=== PATIENT | female | born 1990 | race Caucasian/White ===

== ENCOUNTER 2018-03-14 19:25 | Emergency (ER) | payer OTHER, MEDICAID ==
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
== END 2018-03-14 21:25 | disposition home or self-care (01) ==
LOC: MW.ED 19:25
DX: M54.2 Cervicalgia (principal); V43.52XA Car driver injured in collision with other type car in traffic accident, initial encounter; Z88.8 Allergy status to other drugs, medicaments and biological substances
CPT/HCPCS: 72125; 72125-26; 81025; 99284-25

== ENCOUNTER 2019-04-21 12:16 | Emergency (ER) | payer BC, MEDICAID ==
--- NOTE | 2019-04-21 12:37 | EDM.PDOC ---
ED HPI GENERAL MEDICAL PROBLEM - General Chief Complaint: Bite:Animal, Insect Stated Complaint: BITE ON LEG Time Seen by Provider: 04/21/19 12:27 Source of Information: Reports: Patient History Limitations: Reports: No Limitations - History of Present Illness INITIAL COMMENTS - FREE TEXT/NARRATIVE: History of present illness: []Patient was bitten by an insect on the right posterior thigh yesterday started out with a small red spot now is very large and tender. She's not had any fevers and has no difficulty walking. Review of systems: As per history of present illness and below otherwise all systems reviewed and negative. Past medical history: As per history of present illness and as reviewed below otherwise noncontributory. Surgical history: As per history of present illness and as reviewed below otherwise noncontributory. Social history: No reported history of drug or alcohol abuse. Family history: As per history of present illness and as reviewed below otherwise noncontributory. Physical exam: General: Well developed, well nourished in NAD HEENT: Atraumatic, normocephalic, pupils reactive, negative for conjunctival pallor or scleral icterus, mucous membranes moist, throat clear, neck supple, nontender, trachea midline. Lungs: Clear to auscultation, breath sounds equal bilaterally, chest nontender. Heart: S1S2, regular, negative for clicks, rubs, or JVD. Abdomen: NABS, Soft, nondistended, nontender. Negative for masses or hepatosplenomegaly. Negative for costovertebral tenderness. Pelvis: Stable nontender. Genitourinary: Deferred. Rectal: Deferred. Extremities: 10 cm x 10 cm circular raised erythematous lesion posteriorly right thigh, mildly tender to palpation, no fluctuance or lymphangitis, negative for cords or calf pain. Neurovascular unremarkable. Neuro: Awake, alert, oriented. Cranial nerves II through XII unremarkable. Cerebellum unremarkable. Motor and sensory unremarkable throughout. Exam nonfocal. Skin:warm and dry Diagnostics: None Therapeutics: None ED Course: Stable Impression: Insect bite Prescriptions: Keflex Plan: Take flax, Benadryl as directed, ice, follow up with your primary care physician , return to ER if symptoms worsen or change. Definitive disposition and diagnosis as appropriate pending reevaluation and review of above. Right Posterior Leg Pain Score (Numeric/FACES): 8 - Related Data Allergies Allergy/AdvReac Type Severity Reaction Status Date / Time adhesive tape Allergy Rash Verified 08/02/18 09:02 latex Allergy Rash Verified 08/02/18 09:02 risperidone [From Risperdal] Allergy Seizure Verified 08/02/18 09:02 Home Meds: Home Meds Albuterol Sulfate [Proair Hfa] 1 puff INH ASDIRECTED PRN 03/14/18 [History] Ascorbic Acid [Vitamin C] 1 tab PO BID 08/02/18 [History] Ferrous Sulfate [Iron] 325 mg PO BID 08/02/18 [History] Fluticasone/Salmeterol [Fluticasone-Salmeterol 55-14 MCG Powder Inh] 2 inhalation INH BID 08/02/18 [History] Montelukast Sodium 10 mg PO BEDTIME 08/02/18 [History] cephALEXin [Keflex] 500 mg PO Q8H #15 cap 04/21/19 [Rx] Past Medical History HEENT History: Reports: Other (See Below) Other HEENT History: wears glasses, top and bottom dentures Respiratory History: Reports: Asthma Gastrointestinal History: Reports: None Genitourinary History: Reports: None [employer] 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: Reports: Dysfunctional Uterine Bleeding, Fibroids Musculoskeletal History: Reports: None Neurological History: Reports: Seizure 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 Psychiatric History: Reports: Other (See Below) Other Psychiatric History: hx suicide attempt Endocrine/Metabolic History: Reports: None Hematologic History: Reports: Blood Transfusion(s), Iron Deficiency Immunologic History: Reports: None Oncologic (Cancer) History: Reports: None Dermatologic History: Reports: Other (See Below) Other Dermatologic History: neurofibromatosis - Past Surgical History Head Surgeries/Procedures: Reports: Other (See Below) HEENT Surgical History: Reports: Adenoidectomy, Tonsillectomy Other HEENT Surgeries/Procedures: hx ear surgery GI Surgical History: Reports: Appendectomy, Colonoscopy Female Surgical History: Neurological Surgical History: Reports: Other (See Below) Other Neurological Surgeries/Procedures: brain tumor removal Social & Family History - Family History Family Medical History: Noncontributory ED ROS GENERAL - Review of Systems Review Of Systems: See Below ED EXAM, ANIMAL BITE - Physical Exam Exam: See Below Course - Vital Signs Last Recorded V/S: Last Vital Signs Temp 98.2 F 04/21/19 12:29 Pulse 99 04/21/19 12:29 Resp 18 04/21/19 12:29 BP 136/90 04/21/19 12:29 Pulse Ox 99 04/21/19 12:29 Departure - Departure Time of Disposition: 12:36 Disposition: Home, Self-Care 01 Condition: Good Clinical Impression: Insect bite Qualifiers: Encounter type: initial encounter Site of insect bite: thigh Laterality: right Qualified Code(s): S70.361A - Insect bite (nonvenomous), right thigh, initial encounter; W57.XXXA - Bitten or stung by nonvenomous insect and other nonvenomous arthropods, initial encounter - Discharge Information *PRESCRIPTION DRUG MONITORING PROGRAM REVIEWED*: No *COPY OF PRESCRIPTION DRUG MONITORING REPORT IN PATIENT JUSTICE: No Prescriptions: cephALEXin [Keflex] 500 mg PO Q8H #15 cap Referrals: PCP,Unknown [Primary Care Provider] - Additional Instructions: The following information is given to patients seen in the emergency department who are being discharged to home. This information is to outline your options for follow-up care. We provide all patients seen in our emergency department with a follow-up referral. The need for follow-up, as well as the timing and circumstances, are variable depending upon the specifics of your emergency department visit. If you don't have a primary care physician on staff, we will provide you with a referral. We always advise you to contact your personal physician following an emergency department visit to inform them of the circumstance of the visit and for follow-up with them and/or the need for any referrals to a consulting specialist. The emergency department will also refer you to a specialist when appropriate. This referral assures that you have the opportunity for follow-up care with a specialist. All of these measure are taken in an effort to provide you with optimal care, which includes your follow-up. Under all circumstances we always encourage you to contact your private physician who remains a resource for coordinating your care. When calling for follow-up care, please make the office aware that this follow-up is from your recent emergency room visit. If for any reason you are refused follow-up, please contact the [facility] Emergency Department at and asked to speak to the emergency department charge nurse. Take meds as directed, follow up with your primary care physician, return to ER if symptoms worsen or change. [facility] [address] [place] [id number]
== END 2019-04-21 12:49 | disposition home or self-care (01) ==
LOC: MW.ED 12:16
DX: S70.361A Insect bite (nonvenomous), right thigh, initial encounter (principal); J45.909 Unspecified asthma, uncomplicated; Z88.8 Allergy status to other drugs, medicaments and biological substances; Z91.040 Latex allergy status; Z79.899 Other long term (current) drug therapy; Z90.49 Acquired absence of other specified parts of digestive tract; Z98.890 Other specified postprocedural states; Z91.09 Other allergy status, other than to drugs and biological substances; W57.XXXA Bitten or stung by nonvenomous insect and other nonvenomous arthropods, initial encounter
CPT/HCPCS: 99282

== ENCOUNTER 2019-05-02 08:51 | Emergency (ER) | payer BC ==
--- NOTE | 2019-05-02 09:10 | EDM.PDOC ---
ED HPI GENERAL MEDICAL PROBLEM - General Chief Complaint: ENT Problem Stated Complaint: BILATERAL EAR PAIN Time Seen by Provider: 05/02/19 09:02 - History of Present Illness INITIAL COMMENTS - FREE TEXT/NARRATIVE: HISTORY AND PHYSICAL: History of present illness: Patient's 29-year-old white female history of bilateral ear pain patient states it began this a.m. when she awoke she denies trauma fever chills denies history of otitis media denies sore throat or other concern. Review of systems: As per history of present illness and below otherwise all systems reviewed and negative. Past medical history: As per history of present illness and as reviewed below otherwise noncontributory. Surgical history: As per history of present illness and as reviewed below otherwise noncontributory. Social history: No reported history of drug or alcohol abuse. Family history: As per history of present illness and as reviewed below otherwise noncontributory. Physical exam: HEENT: Atraumatic, normocephalic, pupils reactive, negative for conjunctival pallor or scleral icterus, mucous membranes moist, throat clear, neck supple, nontender, trachea midline. TM normal bilaterally external auditory canal without acute findings mastoid bilateral nontender Lungs: Clear to auscultation, breath sounds equal bilaterally, chest nontender. Heart: S1S2, regular, negative for clicks, rubs, or JVD. Abdomen: Soft, nondistended, nontender. Negative for masses or hepatosplenomegaly. Negative for costovertebral tenderness. Pelvis: Stable nontender. Genitourinary: Deferred. Rectal: Deferred. Extremities: Atraumatic, negative for cords or calf pain. Neurovascular unremarkable. Neuro: Awake, alert, oriented. Cranial nerves II through XII unremarkable. Cerebellum unremarkable. Motor and sensory unremarkable throughout. Exam nonfocal. Diagnostics: None Therapeutics: None Impression: #1 bilateral otalgia etiology to be determined Definitive disposition and diagnosis as appropriate pending reevaluation and review of above. Bilateral Ear Pain Score (Numeric/FACES): 8 - Related Data Allergies Allergy/AdvReac Type Severity Reaction Status Date / Time adhesive tape Allergy Rash Verified 05/02/19 08:58 latex Allergy Rash Verified 05/02/19 08:58 risperidone [From Risperdal] Allergy Seizure Verified 05/02/19 08:58 Home Meds: Home Meds Albuterol Sulfate [Proair Hfa] 1 puff INH ASDIRECTED PRN 03/14/18 [History] Ascorbic Acid [Vitamin C] 1 tab PO BID 08/02/18 [History] Ferrous Sulfate [Iron] 325 mg PO BID 08/02/18 [History] Fluticasone/Salmeterol [Fluticasone-Salmeterol 55-14 MCG Powder Inh] 2 inhalation INH BID 08/02/18 [History] Montelukast Sodium 10 mg PO BEDTIME 08/02/18 [History] Past Medical History HEENT History: Reports: Other (See Below) Other HEENT History: wears glasses, top and bottom dentures Respiratory History: Reports: Asthma Gastrointestinal History: Reports: None Genitourinary History: Reports: None 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: Reports: Dysfunctional Uterine Bleeding, Fibroids Musculoskeletal History: Reports: None Neurological History: Reports: Seizure 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 Psychiatric History: Reports: Other (See Below) Other Psychiatric History: hx suicide attempt Endocrine/Metabolic History: Reports: None Hematologic History: Reports: Blood Transfusion(s), Iron Deficiency Immunologic History: Reports: None Oncologic (Cancer) History: Reports: None Dermatologic History: Reports: Other (See Below) Other Dermatologic History: neurofibromatosis - Infectious Disease History Infectious Disease History: Reports: Chicken Pox - Past Surgical History Head Surgeries/Procedures: Reports: Other (See Below) HEENT Surgical History: Reports: Adenoidectomy, Tonsillectomy Other HEENT Surgeries/Procedures: hx ear surgery GI Surgical History: Reports: Appendectomy, Colonoscopy Neurological Surgical History: Reports: Other (See Below) Other Neurological Surgeries/Procedures: brain tumor removal Social & Family History - Family History Family Medical History: Noncontributory - Tobacco Use Smoking Status *Q: Never Smoker - Caffeine Use Caffeine Use: Reports: Coffee, Soda - Recreational Drug Use Recreational Drug Use: No ED ROS GENERAL - Review of Systems Review Of Systems: ROS reveals no pertinent complaints other than HPI. ED EXAM, GENERAL - Physical Exam Exam: See Below (See dictation) Course - Vital Signs Last Recorded V/S: Last Vital Signs Temp 36.6 C 05/02/19 08:59 Pulse 93 05/02/19 08:59 Resp 17 05/02/19 08:59 BP 134/88 05/02/19 08:59 Pulse Ox 97 05/02/19 08:59 Departure - Departure Time of Disposition: 09:09 Disposition: Home, Self-Care 01 Condition: Good Clinical Impression: Otalgia of both ears - Discharge Information Referrals: PCP,None [Primary Care Provider] - Additional Instructions: The following information is given to patients seen in the emergency department who are being discharged to home. This information is to outline your options for follow-up care. We provide all patients seen in our emergency department with a follow-up referral. The need for follow-up, as well as the timing and circumstances, are variable depending upon the specifics of your emergency department visit. If you don't have a primary care physician on staff, we will provide you with a referral. We always advise you to contact your personal physician following an emergency department visit to inform them of the circumstance of the visit and for follow-up with them and/or the need for any referrals to a consulting specialist. The emergency department will also refer you to a specialist when appropriate. This referral assures that you have the opportunity for followup care with a specialist. All of these measure are taken in an effort to provide you with optimal care, which includes your followup. Under all circumstances we always encourage you to contact your private physician who remains a resource for coordinating your care. When calling for followup care, please make the office aware that this follow-up is from your recent emergency room visit. If for any reason you are refused follow-up, please contact the [facility] emergency department at and asked to speak to the emergency department charge nurse. Motrin/Tylenol as directed decongestants as directed follow-up private medical doctor for reevaluation as discussed return as needed as discussed
== END 2019-05-02 09:15 | disposition home or self-care (01) ==
LOC: MW.ED 08:51
DX: H92.03 Otalgia, bilateral (principal); J45.909 Unspecified asthma, uncomplicated; Z91.040 Latex allergy status; Z91.018 Allergy to other foods; Z88.8 Allergy status to other drugs, medicaments and biological substances; Z79.899 Other long term (current) drug therapy
CPT/HCPCS: 99282

== ENCOUNTER 2019-06-09 19:34 | Emergency (ER) | payer BC ==
--- NOTE | 2019-06-09 20:23 | EDM.PDOC ---
ED HPI GENERAL MEDICAL PROBLEM - General Chief Complaint: Respiratory Problem Stated Complaint: ASTHMA Time Seen by Provider: 06/09/19 20:22 Source of Information: Reports: Patient History Limitations: Reports: No Limitations - History of Present Illness INITIAL COMMENTS - FREE TEXT/NARRATIVE: HISTORY AND PHYSICAL: History of present illness: Patient is a 29-year-old female presents to the ED with complaint of asthma exacerbation. She states that the past couple of days she has been coughing and wheezing. Flovent daily but has been out of her rescue inhaler. She denies fevers, chills, nausea, vomiting. Review of systems: As per history of present illness and below otherwise all systems reviewed and negative. Past medical history: As per history of present illness and as reviewed below otherwise noncontributory. Surgical history: As per history of present illness and as reviewed below otherwise noncontributory. Social history: No reported history of drug or alcohol abuse. Family history: As per history of present illness and as reviewed below otherwise noncontributory. Physical exam: General: Patient sitting comfortably in no acute distress and nontoxic appearing HEENT: Atraumatic, normocephalic, pupils reactive, negative for conjunctival pallor or scleral icterus, mucous membranes moist, throat clear, neck supple, nontender, trachea midline. No meningeal signs. Lungs: Breath sounds are diminished throughout with end expiratory wheezing noted., chest nontender. Heart: S1S2, regular, negative for clicks, rubs, or overt murmur. Abdomen: Soft, nondistended, nontender. Negative for masses or hepatosplenomegaly. Negative for costovertebral tenderness. No rigidity, rebound , guarding. Pelvis: Stable nontender. Genitourinary: Deferred. Rectal: Deferred. Extremities: Atraumatic, negative for cords or calf pain. Neurovascular unremarkable. Neuro: Awake, alert, oriented. Cranial nerves II through XII unremarkable. Cerebellum unremarkable. Motor and sensory unremarkable throughout. Exam nonfocal. Notes: Diagnostics: None Therapeutics: DuoNeb Solu-Medrol 125 mg IM Prescriptions: Ventolin Medrol dosepak Impression: Acute asthma exacerbation Plan: Take medications as instructed Follow up with primary care provider Return to ED as needed as discussed Definitive disposition and diagnosis as appropriate pending reevaluation and review of above. - Related Data Allergies Allergy/AdvReac Type Severity Reaction Status Date / Time adhesive tape Allergy Rash Verified 06/09/19 20:13 latex Allergy Rash Verified 06/09/19 20:13 risperidone [From Risperdal] Allergy Seizure Verified 06/09/19 20:13 Home Meds: Home Meds Albuterol Sulfate [Proair Hfa] 1 puff INH ASDIRECTED PRN 03/14/18 [History] Ascorbic Acid [Vitamin C] 1 tab PO BID 08/02/18 [History] Ferrous Sulfate [Iron] 325 mg PO BID 08/02/18 [History] Fluticasone/Salmeterol [Fluticasone-Salmeterol 55-14 MCG Powder Inh] 2 inhalation INH BID 08/02/18 [History] Montelukast Sodium 10 mg PO BEDTIME 08/02/18 [History] Past Medical History HEENT History: Reports: Other (See Below) Other HEENT History: wears glasses, top and bottom dentures Respiratory History: Reports: Asthma Gastrointestinal History: Reports: None Genitourinary History: Reports: None 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: Dysfunctional Uterine Bleeding, Fibroids Musculoskeletal History: Reports: None Neurological History: Reports: Seizure 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 Psychiatric History: Reports: Other (See Below) Other Psychiatric History: hx suicide attempt Endocrine/Metabolic History: Reports: None Hematologic History: Reports: Blood Transfusion(s), Iron Deficiency Immunologic History: Reports: None Oncologic (Cancer) History: Reports: None Dermatologic History: Reports: Other (See Below) Other Dermatologic History: neurofibromatosis - Infectious Disease History Infectious Disease History: Reports: Chicken Pox - Past Surgical History Head Surgeries/Procedures: Reports: Other (See Below) HEENT Surgical History: Reports: Adenoidectomy, Tonsillectomy Other HEENT Surgeries/Procedures: hx ear surgery GI Surgical History: Reports: Appendectomy, Colonoscopy Neurological Surgical History: Reports: Other (See Below) Other Neurological Surgeries/Procedures: brain tumor removal Social & Family History - Family History Family Medical History: Noncontributory - Tobacco Use Smoking Status *Q: Never Smoker Second Hand Smoke Exposure: No - Caffeine Use Caffeine Use: Reports: Coffee - Recreational Drug Use Recreational Drug Use: No ED ROS GENERAL - Review of Systems Review Of Systems: ROS reveals no pertinent complaints other than HPI. ED EXAM, GENERAL - Physical Exam Exam: See Below (see Dictation) Course - Vital Signs Last Recorded V/S: Last Vital Signs Temp 97.4 F 06/09/19 20:03 Pulse 82 06/09/19 20:03 Resp 14 06/09/19 20:03 BP 132/85 06/09/19 20:03 Pulse Ox 97 06/09/19 20:03 - Orders/Labs/Meds Orders: Active Orders 24 hr Category Date Time Status RT Aerosol Therapy [RC] ASDIRECTED Care 06/09/19 20:25 Ordered Meds: Medications Discontinued Medications Generic Name Dose Route Start Last Admin Trade Name Nigel PRN Reason Stop Dose Admin Albuterol/Ipratropium 3 ml 06/09/19 20:25 06/09/19 20:28 Duoneb 3.0-0.5 Mg/3 Ml NEB 06/09/19 20:26 3 ml ONETIME ONE Administration Albuterol/Ipratropium Confirm 06/09/19 20:26 Duoneb 3.0-0.5 Mg/3 Ml Administered 06/09/19 20:27 Dose 3 ml .ROUTE .STK-MED ONE Methylprednisolone Sodium Succinate 125 mg 06/09/19 20:25 Solu-Medrol IM 06/09/19 20:26 ONETIME ONE Departure - Departure Time of Disposition: 20:54 Disposition: Home, Self-Care 01 Condition: Good Clinical Impression: Acute asthma exacerbation - Discharge Information Instructions: Asthma, Adult Referrals: PCP,None [Primary Care Provider] - Forms: ED Department Discharge Additional Instructions: The following information is given to patients seen in the emergency department who are being discharged to home. This information is to outline your options for follow-up care. We provide all patients seen in our emergency department with a follow-up referral. The need for follow-up, as well as the timing and circumstances, are variable depending upon the specifics of your emergency department visit. If you don't have a primary care physician on staff, we will provide you with a referral. We always advise you to contact your personal physician following an emergency department visit to inform them of the circumstance of the visit and for follow-up with them and/or the need for any referrals to a consulting specialist. The emergency department will also refer you to a specialist when appropriate. This referral assures that you have the opportunity for follow-up care with a specialist. All of these measure are taken in an effort to provide you with optimal care, which includes your follow-up. Under all circumstances we always encourage you to contact your private physician who remains a resource for coordinating your care. When calling for follow-up care, please make the office aware that this follow-up is from your recent emergency room visit. If for any reason you are refused follow-up, please contact the [facility] Emergency Department at and asked to speak to the emergency department charge nurse. [facility] [address] [place] [id number] [address] Take medications as instructed Follow up with primary care provider Return to ED as needed as discussed - My Orders Last 24 Hours: My Active Orders 06/09/19 20:25 RT Aerosol Therapy [RC] ASDIRECTED - Assessment/Plan Last 24 Hours: My Active Orders 06/09/19 20:25 RT Aerosol Therapy [RC] ASDIRECTED
[2019-06-09] MEDS ORDERED: Albuterol/Ipratropium 3.0-0.5 MG/3 ML Neb Soln NEB ONE (20:25)
[2019-06-09] MEDS ORDERED: methylPREDNISolone Sodium Succinate 125 MG/2 ML SDV IM ONE (20:25)
[2019-06-09] MEDS ORDERED: Albuterol/Ipratropium 3.0-0.5 MG/3 ML Neb Soln ONE (20:26)
== END 2019-06-09 21:37 | disposition home or self-care (01) ==
LOC: MW.ED 19:34
DX: J45.901 Unspecified asthma with (acute) exacerbation (principal); Z98.890 Other specified postprocedural states; Z90.49 Acquired absence of other specified parts of digestive tract; Z91.09 Other allergy status, other than to drugs and biological substances; Z91.040 Latex allergy status; Z88.8 Allergy status to other drugs, medicaments and biological substances
CPT/HCPCS: 94640; 99283-25; J7620-GY

== ENCOUNTER 2019-09-23 13:47 | Emergency (ER) | payer BC ==
--- NOTE | 2019-09-23 14:32 | EDM.PDOC ---
ED HPI GENERAL MEDICAL PROBLEM - General Chief Complaint: Skin Complaint Stated Complaint: SORE ON MOUTH Time Seen by Provider: 09/23/19 13:55 Source of Information: Reports: Patient History Limitations: Reports: No Limitations - History of Present Illness INITIAL COMMENTS - FREE TEXT/NARRATIVE: HISTORY AND PHYSICAL: History of present illness: She is a 29-year-old female who presents to the ED today with concern of infection on the right side of her lower lip. Patient states she had a zit on her lip yesterday and tried to pop it and today had more swelling of the lip this morning. Patient states she has been able to eat and drink without difficulty. Denies any other symptoms or concerns. Patient denies fever, chills, chest pain, shortness of breath, or cough. Denies headache, neck stiff ness, change in vision, syncope, or near syncope. Denies nausea, vomiting, abdominal pain, diarrhea, constipation, or dysuria. Has not noted any blood in urine or stool. Patient has been eating and drinking appropriately. Review of systems: As per history of present illness and below otherwise all systems reviewed and negative. Past medical history: As per history of present illness and as reviewed below otherwise noncontributory. Surgical history: As per history of present illness and as reviewed below otherwise noncontributory. Social history: See social history for further information Family history: As per history of present illness and as reviewed below otherwise noncontributory. Physical exam: General: Patient is alert, oriented, and in no acute distress. Patient sitting comfortably on exam table. HEENT: Atraumatic, normocephalic, pupils equal and reactive bilaterally, negative for conjunctival pallor or scleral icterus, mucous membranes moist, TMs normal bilaterally, throat clear, neck supple, nontender, trachea midline. No drooling or trismus noted. No meningeal signs. No hot potato voice noted. There is a small lesion on the right side of the lower lip with localized mild edema of the lip. This area is does not extend beyond the lip. Dentition intact without sign of abscess. Lungs: Clear to auscultation, breath sounds equal bilaterally, chest nontender. Heart: S1S2, regular rate and rhythm without overt murmur Abdomen: Soft, nondistended, nontender. Negative for masses or hepatosplenomegaly. Negative for costovertebral tenderness. Pelvis: Stable nontender. Genitourinary: Deferred. Rectal: Deferred. Skin: Intact, warm, dry. No lesions or rashes noted. Extremities: Atraumatic, negative for cords or calf pain. Neurovascular unremarkable. Neuro: Awake, alert, oriented. Cranial nerves II through XII unremarkable. Cerebellum unremarkable. Motor and sensory unremarkable throughout. Exam nonfocal. Notes: Discussed importance for follow-up with a primary care provider. Voices understanding and is agreeable to plan of care. Denies any further questions or concerns at this time. Diagnostics: None Therapeutics: None Prescription: Bactrim DS Impression: Localized cellulitis Plan: 1. Take medication as prescribed. You can alternate ibuprofen and Tylenol as directed for pain and discomfort. 2. Follow-up with your primary care provider as discussed. Return to the ED as needed and as discussed. Definitive disposition and diagnosis as appropriate pending reevaluation and review of above. Right Face/Facial Pain Score (Numeric/FACES): 8 - Related Data Allergies Allergy/AdvReac Type Severity Reaction Status Date / Time adhesive tape Allergy Rash Verified 09/23/19 13:56 latex Allergy Rash Verified 09/23/19 13:56 risperidone [From Risperdal] Allergy Seizure Verified 09/23/19 13:56 Home Meds: Home Meds Albuterol Sulfate [Proair Hfa] 1 puff INH ASDIRECTED PRN 03/14/18 [History] Ascorbic Acid [Vitamin C] 1 tab PO BID 08/02/18 [History] Ferrous Sulfate [Iron] 325 mg PO BID 08/02/18 [History] Fluticasone/Salmeterol [Fluticasone-Salmeterol 55-14 MCG Powder Inh] 2 inhalation INH BID 08/02/18 [History] Montelukast Sodium 10 mg PO BEDTIME 08/02/18 [History] Sulfamethoxazole/Trimethoprim [Bactrim Ds Tablet] 1 each PO BID #20 tablet 09/23 [Rx] Past Medical History HEENT History: Reports: Other (See Below) Other HEENT History: wears glasses, top and bottom dentures Respiratory History: Reports: Asthma Gastrointestinal History: Reports: None Genitourinary History: Reports: None 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: Dysfunctional Uterine Bleeding, Fibroids Musculoskeletal History: Reports: None Neurological History: Reports: Seizure 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 Psychiatric History: Reports: Other (See Below) Other Psychiatric History: hx suicide attempt Endocrine/Metabolic History: Reports: None Hematologic History: Reports: Blood Transfusion(s), Iron Deficiency Immunologic History: Reports: None Oncologic (Cancer) History: Reports: None Dermatologic History: Reports: Other (See Below) Other Dermatologic History: neurofibromatosis - Infectious Disease History Infectious Disease History: Reports: Chicken Pox - Past Surgical History Head Surgeries/Procedures: Reports: Other (See Below) HEENT Surgical History: Reports: Adenoidectomy, Tonsillectomy Other HEENT Surgeries/Procedures: hx ear surgery GI Surgical History: Reports: Appendectomy, Colonoscopy Neurological Surgical History: Reports: Other (See Below) Other Neurological Surgeries/Procedures: brain tumor removal Social & Family History - Family History Family Medical History: Noncontributory - Tobacco Use Smoking Status *Q: Never Smoker - Caffeine Use Caffeine Use: Reports: Coffee, Energy Drinks, Soda, Tea - Recreational Drug Use Recreational Drug Use: No ED ROS GENERAL - Review of Systems Review Of Systems: Comprehensive ROS is negative, except as noted in HPI. ED EXAM, SKIN/RASH Exam: See Below (see dictation) Course - Vital Signs Last Recorded V/S: Last Vital Signs Temp 97.4 F 09/23/19 13:57 Pulse 105 H 09/23/19 13:57 Resp 19 09/23/19 13:57 BP 123/78 09/23/19 13:57 Pulse Ox 97 09/23/19 13:57 Departure - Departure Time of Disposition: 14:31 Disposition: Home, Self-Care 01 Clinical Impression: Cellulitis Qualifiers: Site of cellulitis: mouth Qualified Code(s): K12.2 - Cellulitis and abscess of mouth - Discharge Information Prescriptions: Sulfamethoxazole/Trimethoprim [Bactrim Ds Tablet] 1 each PO BID #20 tablet Instructions: Cellulitis, Adult, [id number] Referrals: PCP,None [Primary Care Provider] - Forms: ED Department Discharge Additional Instructions: The following information is given to patients seen in the emergency department who are being discharged to home. This information is to outline your options for follow-up care. We provide all patients seen in our emergency department with a follow-up referral. The need for follow-up, as well as the timing and circumstances, are variable depending upon the specifics of your emergency department visit. If you don't have a primary care physician on staff, we will provide you with a referral. We always advise you to contact your personal physician following an emergency department visit to inform them of the circumstance of the visit and for follow-up with them and/or the need for any referrals to a consulting specialist. The emergency department will also refer you to a specialist when appropriate. This referral assures that you have the opportunity for follow-up care with a specialist. All of these measure are taken in an effort to provide you with optimal care, which includes your follow-up. Under all circumstances we always encourage you to contact your private physician who remains a resource for coordinating your care. When calling for follow-up care, please make the office aware that this follow-up is from your recent emergency room visit. If for any reason you are refused follow-up, please contact the [facility] Emergency Department at and asked to speak to the emergency department charge nurse. [facility] [address] [place] [phone] [id number] 1. Take medication as prescribed. You can alternate ibuprofen and Tylenol as directed for pain and discomfort. 2. Follow-up with your primary care provider as discussed. Return to the ED as needed and as discussed. Sepsis Event Note - Evaluation Sepsis Screening Result: No Definite Risk - Focused Exam Vital Signs: Vital Signs Temp Pulse Resp BP Pulse Ox 09/23/19 13:57 97.4 F 105 H 19 123/78 97 Date Exam was Performed: 09/23/19 Time Exam was Performed: 14:36
== END 2019-09-23 14:44 | disposition home or self-care (01) ==
LOC: MW.ED 13:47
DX: K12.2 Cellulitis and abscess of mouth (principal); J45.909 Unspecified asthma, uncomplicated; Z91.040 Latex allergy status; Z88.8 Allergy status to other drugs, medicaments and biological substances; Z91.048 Other nonmedicinal substance allergy status; Z79.51 Long term (current) use of inhaled steroids; Z79.899 Other long term (current) drug therapy
CPT/HCPCS: 99282

== ENCOUNTER 2021-02-23 22:08 | Emergency (ER) | payer MEDICAID ==
[2021-02-23] MEDS ORDERED: predniSONE 10 MG Tab PO ONE (22:44)
--- NOTE | 2021-02-23 23:25 | EDM.PDOC ---
ED HPI GENERAL MEDICAL PROBLEM - General Chief Complaint: Respiratory Problem Stated Complaint: CHEST PAIN/ BREATHING PROBLEMS Time Seen by Provider: 02/23/21 22:44 - History of Present Illness INITIAL COMMENTS - FREE TEXT/NARRATIVE: HISTORY AND PHYSICAL: History of present illness: This is a 31-year-old female with history significant for asthma in the past who presents ER today secondary to shortness of breath and wheezing with congestion x1 day. Patient reports that she used 2 albuterol treatments prior to arrival in the ED and feels much better. Patient reports she still feels congested and has been coughing a significant amount of clear sputum. Patient reports that she gets tested for Covid twice a week and has no concerns and does not wish to be tested here in the ED for coronavirus. Patient denies any recent fevers, shakes, chills. Patient has any nausea, vomiting, diarrhea. Patient is complaining of a sore throat. Patient denies any abdominal pain. Review of systems: As per history of present illness and below otherwise all systems reviewed and negative. Past medical history: As per history of present illness and as reviewed below otherwise noncontributory. Surgical history: As per history of present illness and as reviewed below otherwise noncontributory. Social history: No reported history of drug abuse. Family history: As per history of present illness and as reviewed below otherwise noncontributory. Physical exam: This patient was seen and evaluated during the 2019 SARS-CoV-2 novel coronavirus pandemic period. Community viral transmission is ongoing at time of this enco unter and the emergency department is operating under pandemic response procedures. Constitutional: Patient is oriented to person, place, and time. Appears well- developed and well-nourished. No distress. HEENT: Moist mucous membranes Head: Normocephalic and atraumatic Eyes: Right eye exhibits no discharge. Left eye exhibits no discharge. No scleral icterus Neck: Normal range of motion. No tracheal deviation present. Cardiovascular: Normal rate and regular rhythm. Pulmonary: Effort normal, no respiratory distress. Abdominal: No distention Musculoskeletal: Normal range of motion Neurologic: Alert and oriented to person, place and time. Skin: [place], warm and dry. Psychiatric: Normal mood and affect. Behavior is normal. Judgment and thought content normal. Nursing note and vital signs have been reviewed Patient's lungs are clear without any wheezing rales or rhonchi. Patient's oropharynx is clear without any exudates. Patient has no tender lymphadenopathy. Patient has no trismus or evidence of airway abscess. Diagnostics: Chest Xray: Normal cardiac silhouette No infiltrates or effusions identified. No PTX No evidence of acute bony fracture. As interpreted by ER MD: Mook Guidry: Patient will get started on prednisone in the ED. Patient be given 40 mg p.o. Assessment and plan: 31-year-old female with a history significant for asthma who presents ER today with increasing asthma exacerbation. Patient's lungs are clear currently after treatment at home. Patient's chest x-ray is unremarkable without any evidence of pneumonia. Patient will get started on prednisone for 5 days. Patient likely has exacerbation from environmental allergens causing flareup of her asthma. At this time, the patient's pulse ox is 99% on room air and does not appear to be in any respiratory distress. Patient reports that she feels much better from a respiratory standpoint and currently does not feel like she is wheezing. Patient agrees with not requiring any albuterol treatments here in the ED as she is ready given herself to prior to coming. Reassessment at the time of disposition demonstrates that the patient is in no acute distress. The patient has remained stable throughout the entire ED visit and is without objective evidence for acute process requiring urgent intervention or hospitalization. The patient is stable for discharge, counseling is provided as documented above, discussed symptomatic treatment and specific conditions for return. I have spoken with the patient/caregiver and discussed todays findings, in addition to providing specific details for the plan of care. Questions are answered and there is agreement with the plan. Definitive disposition and diagnosis as appropriate pending reevaluation and review of above. Throat Pain Score (Numeric/FACES): 8 - Related Data Allergies Allergy/AdvReac Type Severity Reaction Status Date / Time adhesive tape Allergy Rash Verified 02/23/21 22:36 latex Allergy Rash Verified 02/23/21 22:36 risperidone [From Risperdal] Allergy Seizure Verified 02/23/21 22:36 Home Meds: Home Meds Albuterol Sulfate [Proair Hfa] 1 puff INH ASDIRECTED PRN 03/14/18 [History] Ascorbic Acid [Vitamin C] 1 tab PO BID 08/02/18 [History] Ferrous Sulfate [Iron] 325 mg PO BID 08/02/18 [History] Fluticasone/Salmeterol [Fluticasone-Salmeterol 55-14 MCG Powder Inh] 2 inhalation INH BID 08/02/18 [History] Montelukast Sodium 10 mg PO BEDTIME 08/02/18 [History] predniSONE [Prednisone] 50 mg PO DAILY #5 tablet 02/23/21 [Rx] Past Medical History HEENT History: Reports: Other (See Below) Other HEENT History: wears glasses, has upper and lower dentures, hx of fx nose Respiratory History: Reports: Asthma Gastrointestinal History: Reports: Other (See Below) Other Gastrointestinal History: occasional heartburn- takes Tums Genitourinary History: Reports: None [employer] History: Reports: Dysfunctional Uterine Bleeding, Fibroids Musculoskeletal History: Reports: Other (See Below) Other Musculoskeletal History: hx of Neurofibromatosis Type 1 Neurological History: Reports: Headaches, Chronic, Migraines, Seizure Other Neuro History: had a seizure while taking Risperdal Psychiatric History: Reports: Other (See Below) Other Psychiatric History: hx of Claustrophobia Endocrine/Metabolic History: Reports: None Hematologic History: Reports: Anemia, Blood Transfusion(s) Other Hematologic History: amenic- unknown cause Immunologic History: Reports: None Oncologic (Cancer) History: Reports: None Dermatologic History: Reports: Other (See Below) Other Dermatologic History: neurofibromatosis - Infectious Disease History Infectious Disease History: Reports: Chicken Pox - Past Surgical History Head Surgeries/Procedures: Reports: None HEENT Surgical History: Reports: Adenoidectomy, Myringotomy w Tube(s), Tonsillectomy Other HEENT Surgeries/Procedures: hx ear surgery GI Surgical History: Reports: Appendectomy, Colonoscopy Female Surgical History: Reports: Other (See Below) Other Female Surgeries/Procedures: Excision of Uterine tumor Neurological Surgical History: Reports: Other (See Below) Other Neurological Surgeries/Procedures: Crainiotomy for resection of brain tumor (neurofibromatosis)- thinks she may have screws in her skull Social & Family History - Family History Family Medical History: No Pertinent Family History - Tobacco Use Tobacco Use Status *Q: Never Tobacco User Second Hand Smoke Exposure: No - Caffeine Use Caffeine Use: Reports: None - Recreational Drug Use Recreational Drug Use: No ED ROS GENERAL - Review of Systems Review Of Systems: See Below ED EXAM, GENERAL - Physical Exam Exam: See Below Course - Vital Signs Last Recorded V/S: Last Vital Signs Temp 98.8 F 02/23/21 22:33 Pulse 110 H 02/23/21 22:33 Resp 14 02/23/21 22:33 BP 133/65 02/23/21 22:33 Pulse Ox 96 02/23/21 22:33 - Orders/Labs/Meds Orders: Active Orders 24 hr Category Date Time Status Chest 2V [CR] Stat Exams 02/23/21 22:44 Ordered Meds: Medications Discontinued Medications Generic Name Dose Route Start Last Admin Trade Name Nigel PRN Reason Stop Dose Admin Prednisone 40 mg 02/23/21 22:44 02/23/21 22:53 Prednisone 10 Mg Tab PO 02/23/21 22:45 40 mg ONETIME ONE Administration Departure - Departure Time of Disposition: 23:24 Disposition: Home, Self-Care 01 Condition: Good Clinical Impression: Exacerbation of asthma - Discharge Information Instructions: Asthma, Adult Referrals: PCP,None [Primary Care Provider] - Additional Instructions: You were seen and evaluated in the ER today secondary to an exacerbation of your asthma prior to coming into the ED. After your treatments at home, it appears that your lungs are currently clear without any further wheezing. In the ED you were given a dose of prednisone 40 mg and will be discharged home with 40 mg daily for 5 days help alleviate the exacerbation of your asthma. Please make an appointment to follow-up with your family doctor within the next 2 to 3 days for reevaluation. Please return to the ER if you start experiencing any worsening shortness of breath or any other concerns. The following information is given to patients seen in the emergency department who are being discharged to home. This information is to outline your options for follow-up care. We provide all patients seen in our emergency department with a follow-up referral. The need for follow-up, as well as the timing and circumstances, are variable depending upon the specifics of your emergency department visit. If you don't have a primary care physician on staff, we will provide you with a referral. We always advise you to contact your personal physician following an emergency department visit to inform them of the circumstance of the visit and for follow-up with them and/or the need for any referrals to a consulting specialist. The emergency department will also refer you to a specialist when appropriate. This referral assures that you have the opportunity for follow-up care with a specialist. All of these measure are taken in an effort to provide you with optimal care, which includes your follow-up. Under all circumstances we always encourage you to contact your private physician who remains a resource for coordinating your care. When calling for follow-up care, please make the office aware that this follow-up is from your recent emergency room visit. If for any reason you are refused follow-up, please contact the [facility] Emergency Department at and asked to speak to the emergency department charge nurse. [facility] [address] [place] [id number] [address] Sepsis Event Note (ED) - Evaluation Sepsis Screening Result: No Definite Risk - Focused Exam Vital Signs: Vital Signs Temp Pulse Resp BP Pulse Ox 02/23/21 22:33 98.8 F 110 H 14 133/65 96 - My Orders Last 24 Hours: My Active Orders 02/23/21 22:44 Chest 2V [CR] Stat - Assessment/Plan Last 24 Hours: My Active Orders 02/23/21 22:44 Chest 2V [CR] Stat
--- NOTE | 2021-02-23 23:40 | CR ---
INDICATION: Shortness of breath. COMPARISON: 01/14/2020 FINDINGS: PA and lateral views of the chest were obtained. The lungs remain clear. No focal or diffuse infiltrates are present. The heart remains normal in size. The mediastinum is normal in appearance. The osseous structures are normal in appearance for the patient`s age. IMPRESSION: Normal chest two views. Dictated by Basil Ty MD @ 02/23/2021 11:38:[address] Basil Ty @ Feb 23 2021 11:38PM
== END 2021-02-23 23:35 | disposition home or self-care (01) ==
LOC: MW.ED 22:08
DX: J45.901 Unspecified asthma with (acute) exacerbation (principal); Z91.048 Other nonmedicinal substance allergy status; Z91.040 Latex allergy status; Z88.8 Allergy status to other drugs, medicaments and biological substances; Z79.899 Other long term (current) drug therapy
CPT/HCPCS: 71046; 99284; A9270; 99283

== ENCOUNTER 2022-04-06 08:59 | Observation (INO) | payer MEDICAID ==
[2022-04-06] MEDS ORDERED: Lactated Ringers 1,000 ML IV SCH (09:45)
[2022-04-06] MEDS: Ondansetron 4 MG/2 ML SDV IVPUSH PRN ×2 (10:42→17:31)
[2022-04-06 11:44] LABS: CARBON DIOXIDE,CO2 18.6 mmol/L (21.0-32.0); POTASSIUM,K 3.8 mmol/L (3.5-5.1)
[2022-04-06] MEDS: Lactated Ringers 1,000 ML IV SCH ×2 (13:30→20:47)
[2022-04-06] MEDS ORDERED: Albuterol/Ipratropium 3.0-0.5 MG/3 ML Neb Soln NEB SCH (15:30)
[2022-04-06] MEDS: NIRMATRELVIR PO SCH (17:45)
[2022-04-06] MEDS: RITONAVIR PO SCH (17:45)
[2022-04-06] MEDS ORDERED: Albuterol/Ipratropium 3.0-0.5 MG/3 ML Neb Soln NEB PRN (18:00)
[2022-04-06] MEDS ORDERED: RITONAVIR PO SCH (18:00)
[2022-04-06] MEDS ORDERED: NIRMATRELVIR PO SCH (18:00)
[2022-04-06] MEDS ORDERED: Acetaminophen 650 MG in Premix Bag 1 BAG IV SCH (19:45)
[2022-04-06] MEDS: Metoclopramide 10 MG/2 ML SDV IVPUSH PRN (20:00)
[2022-04-06] MEDS: Albuterol/Ipratropium 3.0-0.5 MG/3 ML Neb Soln NEB PRN (23:10)
[2022-04-07] MEDS: Ondansetron 4 MG/2 ML SDV IVPUSH PRN (04:07)
[2022-04-07] MEDS: Lactated Ringers 1,000 ML IV SCH (04:08)
[2022-04-07] MEDS: Albuterol/Ipratropium 3.0-0.5 MG/3 ML Neb Soln NEB PRN (04:41)
[2022-04-07 07:12] LABS: CARBON DIOXIDE,CO2 19.6 mmol/L (21.0-32.0)
[2022-04-07] MEDS: Metoclopramide 10 MG/2 ML SDV IVPUSH PRN (07:34)
[2022-04-07] MEDS: NIRMATRELVIR PO SCH (09:09)
[2022-04-07] MEDS: RITONAVIR PO SCH (09:09)
[2022-04-07] MEDS ORDERED: Iron Sucrose Complex 200 MG in Sodium Chloride 0.9% 100 ML IV ONE (09:15)
== END 2022-04-07 12:25 | disposition home or self-care (01) ==
LOC: MW.OB 08:59 → MW.OBCHECK 08:59 → MW.OB 13:00 → MW.OBCHECK 15:43
PROVIDERS: ADMIT Obstetrics & Gynecology; ATTEND Obstetrics & Gynecology
DX: O98.513 Other viral diseases complicating pregnancy, third trimester (principal); U07.1 COVID-19; O99.513 Diseases of the respiratory system complicating pregnancy, third trimester; J45.909 Unspecified asthma, uncomplicated; Z91.040 Latex allergy status; Z88.8 Allergy status to other drugs, medicaments and biological substances; Z79.51 Long term (current) use of inhaled steroids; Z79.52 Long term (current) use of systemic steroids; Z3A.29 29 weeks gestation of pregnancy
CPT/HCPCS: 36415; 59025; 76819; 80053; 81003; 83735; 84100; 85027; 87635; 94640; 96361; 96365; 96375; 96376; G0378; J0131; J1756; J2405; J2765; J3490; J7120; J7620-GY; U0002

== ENCOUNTER 2022-05-12 17:52 | Observation (INO) | payer MEDICAID ==
[2022-05-12] MEDS ORDERED: Dextrose 5%-Lactated Ringers 1,000 ML IV SCH (18:15)
[2022-05-12] MEDS: Ondansetron 4 MG/2 ML SDV IVPUSH PRN (18:49)
[2022-05-12] MEDS: Lactated Ringers 1,000 ML IV ONE ×2 (19:14→20:43)
[2022-05-12 20:15] LABS: CARBON DIOXIDE,CO2 20.5 mmol/L (21.0-32.0); POTASSIUM,K 3.5 mmol/L (3.5-5.1)
[2022-05-12] MEDS: Lactated Ringers 1,000 ML IV SCH (20:40)
[2022-05-13] MEDS: Lactated Ringers 1,000 ML IV SCH (03:25)
[2022-05-13] MEDS: Ondansetron 4 MG/2 ML SDV IVPUSH PRN ×2 (06:18→16:15)
[2022-05-13] MEDS ORDERED: Iron Sucrose Complex 500 MG in Sodium Chloride 0.9% 250 ML IV ONE (06:36)
[2022-05-13] MEDS ORDERED: Dextrose 5%-Lactated Ringers 1,000 ML IV SCH (15:00)
== END 2022-05-13 16:30 ==
LOC: MW.OB 17:52 → MW.OBCHECK 17:52 → MW.OB 21:47
PROVIDERS: ADMIT Obstetrics & Gynecology; ATTEND Obstetrics & Gynecology
DX: O26.613 Liver and biliary tract disorders in pregnancy, third trimester (principal); O36.8130 Decreased fetal movements, third trimester, not applicable or unspecified; O98.513 Other viral diseases complicating pregnancy, third trimester; U07.1 COVID-19; O99.513 Diseases of the respiratory system complicating pregnancy, third trimester; J45.909 Unspecified asthma, uncomplicated; Z79.51 Long term (current) use of inhaled steroids; Z79.899 Other long term (current) drug therapy; Z90.49 Acquired absence of other specified parts of digestive tract; Z98.890 Other specified postprocedural states; Z86.16 Personal history of COVID-19; Z3A.34 34 weeks gestation of pregnancy; Z91.040 Latex allergy status; Z88.8 Allergy status to other drugs, medicaments and biological substances
CPT/HCPCS: 36415; 76819; 76820; 80053; 85027; 96361; 96374; 96376; G0378; J1756; J2405; J7050; J7120

== ENCOUNTER 2024-01-14 10:51 | Emergency (ER) | payer MEDICAID | END 2024-01-14 11:15 | disposition home or self-care (01) | LOC: MW.ED 10:51 | DX: T20.22XA Burn of second degree of lip(s), initial encounter (principal); J45.909 Unspecified asthma, uncomplicated; Z79.899 Other long term (current) drug therapy; Z88.8 Allergy status to other drugs, medicaments and biological substances; Z91.040 Latex allergy status; Z91.048 Other nonmedicinal substance allergy status; Z75.8 Other problems related to medical facilities and other health care; X10.1XXA Contact with hot food, initial encounter | CPT/HCPCS: 99283 ==

== ENCOUNTER 2024-11-15 20:05 | Emergency (ER) | payer MEDICAID ==
[2024-11-15] MEDS: Albuterol/Ipratropium 3.0-0.5 MG/3 ML Neb Soln NEB ONE ×2 (22:40→22:41)
[2024-11-15] MEDS: Sodium Chloride 0.9% 1,000 ML IV ONE ×2 (22:40→23:35)
[2024-11-15] MEDS: Acetaminophen 500 MG Tab PO ONE ×2 (22:42→23:57)
[2024-11-15] MEDS: Ketorolac 30 MG/ML SDV IVPUSH ONE (22:43)
[2024-11-15] MEDS: Ondansetron 4 MG/2 ML SDV IVPUSH ONE (22:44)
[2024-11-15 23:06] LABS: BASOPHILS ABSOLUTE AUTO 0.01 K/uL (0.00-0.20); BASOPHILS PERCENT AUTO 0.2 % (0.0-1.0); HEMATOCRIT 42.1 % (37.0-47.0); IMMATURE GRAN ABSOLUTE AUTO 0.01 K/uL (0.00-0.05); IMMATURE GRAN PERCENT AUTO 0.2 % (0.0-0.4); LYMPHOCYTES ABSOLUTE AUTO 0.54 K/uL (1.00-4.80); LYMPHOCYTES PERCENT AUTO 11.4 % (24.0-44.0); MEAN CORPUSCULAR HEMOGLOBIN 29.5 pg (28.0-32.0); MEAN CORPUSCULAR HGB CONC 33.3 g/dL (32.0-36.0); MEAN CORPUSCULAR VOLUME 88.8 fL (83.0-99.0); MEAN PLATELET VOLUME 10.7 fL (9.4-12.3); MONOCYTES ABSOLUTE AUTO 0.68 K/uL (0.00-0.80); MONOCYTES PERCENT AUTO 14.3 % (0.0-8.0); NEUTROPHILS ABSOLUTE AUTO 3.51 K/uL (1.80-7.70); NEUTROPHILS PERCENT AUTO 73.9 % (41.0-71.0); PLATELET COUNT,PLT 155 K/uL (150-400); RED BLOOD CELL COUNT 4.74 M/uL (4.10-5.30); WHITE BLOOD CELL COUNT,WBC 4.75 K/uL (3.9-11.3)
[2024-11-15] MEDS: methylPREDNISolone Sodium Succinate 125 MG/2 ML SDV IVPUSH ONE (23:54)
[2024-11-15 23:59] LABS: A/G RATIO 1.1 (0.9-1.6); ALBUMIN 3.6 g/dL (3.4-5.0); BILIRUBIN TOTAL 0.3 mg/dL (0.2-1.0); CALCIUM 8.3 mg/dL (8.5-10.1); CARBON DIOXIDE,CO2 20.6 mmol/L (21.0-32.0); CREATININE 0.6 mg/dL (0.6-1.0); EST CRCL DRUG DOSING (CG) 101.58 mL/min; MAGNESIUM 1.8 mg/dL (1.8-2.4)
[2024-11-16 00:45] LABS: APPEARANCE,URINE HAZY; COLOR,URINE YELLOW
[2024-11-16 00:46] LABS: BILIRUBIN,URINE NEGATIVE (NEGATIVE); GLUCOSE,URINE NEGATIVE (NEGATIVE); KETONES,URINE 80 mg/dL (NEGATIVE); LEUKOCYTE ESTERASE,URINE SMALL (NEGATIVE); NITRITE,URINE NEGATIVE (NEGATIVE); OCCULT BLOOD,URINE LARGE (NEGATIVE); PROTEIN,URINE NEGATIVE (NEGATIVE); UROBILINOGEN,URINE 0.2 EU/dL (<2.0)
[2024-11-16 00:47] LABS: BACTERIA,URINE FEW (NEGATIVE); EPITHELIAL CELLS,URINE FEW (NONE-FEW); MUCUS,URINE MODERATE (NONE-MOD)
== END 2024-11-16 01:12 | disposition home or self-care (01) ==
LOC: MW.ED 20:05
DX: J45.901 Unspecified asthma with (acute) exacerbation (principal); J10.1 Influenza due to other identified influenza virus with other respiratory manifestations; N30.01 Acute cystitis with hematuria; E86.0 Dehydration; Z90.49 Acquired absence of other specified parts of digestive tract; Z91.040 Latex allergy status; Z88.8 Allergy status to other drugs, medicaments and biological substances; Z91.048 Other nonmedicinal substance allergy status
CPT/HCPCS: 36415; 71045; 80053; 81001; 81025; 83605; 83690; 83735; 83880; 84484; 85025; 87040; 87086; 87428; 93005; 96361; 96374; 96375; 99285; A9270; J1100; J1885; J2405; J7030; J7620-GY